=== PATIENT | female | born 1995 | race Caucasian/White ===

== ENCOUNTER 2020-07-09 19:32 | Emergency (ER) | payer SELFPAY ==
[2020-07-09] MEDS ORDERED: Mupirocin Oint 22 GM Tube TOP ONE (19:57)
--- NOTE | 2020-07-09 19:57 | EDM.PDOC ---
ED HPI GENERAL MEDICAL PROBLEM - General Chief Complaint: Skin Complaint Stated Complaint: INFECTED WOUND ON LIP Time Seen by Provider: 07/09/20 19:48 Source of Information: Reports: Patient History Limitations: Reports: No Limitations - History of Present Illness INITIAL COMMENTS - FREE TEXT/NARRATIVE: HISTORY AND PHYSICAL: History of present illness: Patient is a 24-year-old female who presents to the emergency room with complaints of a "infected lip". She states a few days ago she had hit herself in the lip resulting in her splitting her lip open. She states she kept picking at it and ripping the scab off and noticed some purulent drainage coming from the site. She does have a canker/cold sore to the inner aspect of the lip and crusted drainage noted near the ty boarder. The injury does not cross the vermilion border. She states she is currently on amoxicillin for strep throat. She offers no other complaints or concerns. Review of systems: As per history of present illness and below otherwise all systems reviewed and negative. Past medical history: As per history of present illness and as reviewed below otherwise noncontributory. Surgical history: As per history of present illness and as reviewed below otherwise noncontributory. Social history: See social history for further information Family history: As per history of present illness and as reviewed below otherwise noncontributory. Physical exam: General: Well developed and well nourished. Alert and orientated x 3. Nontoxic in appearance and in no acute distress. Vital signs are stable and have been reviewed by me. Nursing notes were reviewed. HEENT: Normocephalic, pupils equal and reactive bilaterally, negative for conjunctival pallor or scleral icterus, mucous membranes moist, 0.75cm laceration to the mid bottom lip, does not cross the vermilion border. She does have a blister to the inside of her bottom lip consistent with a canker sore. TMs normal bilaterally, throat clear, neck supple, nontender, trachea midline. No drooling or trismus noted. No meningeal signs. No hot potato voice noted. Skin: Intact, warm, dry. No lesions or rashes noted. Hematologic: No petechiae or purpra. Mucosa appropriate color and normal nail bed color and refill. Extremities: Atraumatic, moves all extremities per self without difficulty or deficits, negative for cords or calf pain. Neurovascular unremarkable. Neuro: Awake, alert, oriented. Cranial nerves II through XII unremarkable. Cerebellum unremarkable. Motor and sensory unremarkable throughout. Exam nonfocal. Psychiatric: Mood and affect are appropriate. Normal thought process. Answering questions appropriately. Notes: I have spoken with the patient/caregiver and discussed today's findings, in addition to providing specific details for plan of care. Reassessment at the time of disposition demonstrates that the patient is in no acute distress. The patient is stable for discharge, counseling was provided and we discussed in great detail signs and symptoms that would prompt them to return to the Emergency Department. Medication, follow up and supportive care measures were reviewed and discussed. Voices understanding and is agreeable to plan of care. Denies any further questions or concerns at this time. Diagnostics: None Therapeutics: Bactroban Prescription: None Impression: Lip wound, uncomplicated Plan: 1. Keep taking your antibiotic as prescribed. Apply the ointment three times daily x 7 -10 days. 2. Avoid any salty, citrus or spicy foods as this can cause irritation. 3. We encourage you to follow up with your primary care provider and/or recommended specialist in the next few days for re-evaluation and further care/management. If your symptoms should worsen, new symptoms develop or any of the signs and symptoms we discussed should arise please return to the emergency room or call 911 (if needed). Definitive disposition and diagnosis as appropriate pending reevaluation and rev iew of above. Lower lip Pain Score (Numeric/FACES): 8 - Related Data Allergies Allergy/AdvReac Type Severity Reaction Status Date / Time diphenhydramine Allergy Other Verified 07/09/20 19:38 [From Benadryl] Home Meds: Home Meds Amoxicillin 500 mg PO TID 07/09/20 [History] Meclizine [Antivert] 07/09/20 [History] clonazePAM [Klonopin] 0.5 mg PO DAILY PRN 07/09/20 [History] Past Medical History Neurological History: Reports: Migraines Psychiatric History: Reports: Anxiety, Bipolar, PTSD Hematologic History: Reports: Anemia - Infectious Disease History Infectious Disease History: Reports: Chicken Pox Social & Family History - Family History Family Medical History: Noncontributory - Caffeine Use Caffeine Use: Reports: Coffee, Tea - Recreational Drug Use Recreational Drug Use: No ED ROS GENERAL - Review of Systems Review Of Systems: Comprehensive ROS is negative, except as noted in HPI. ED EXAM, SKIN/RASH Exam: See Below (See dictation) Course - Vital Signs Last Recorded V/S: Last Vital Signs Temp 98.0 F 07/09/20 19:40 Pulse 100 07/09/20 19:40 Resp 18 07/09/20 19:40 BP 116/71 07/09/20 19:40 Pulse Ox 99 07/09/20 19:40 - Orders/Labs/Meds Meds: Medications Discontinued Medications Generic Name Dose Route Start Last Admin Trade Name Freq PRN Reason Stop Dose Admin Mupirocin 1 gm 07/09/20 19:57 Bactroban Oint TOP 07/09/20 19:58 ONETIME ONE Departure - Departure Time of Disposition: 19:56 Disposition: Home, Self-Care 01 Clinical Impression: Open wound of lip, uncomplicated Qualifiers: Encounter type: initial encounter Qualified Code(s): S01.501A - Unspecified open wound of lip, initial encounter - Discharge Information Referrals: PCP,None [Primary Care Provider] - Forms: ED Department Discharge Additional Instructions: The following information is given to patients seen in the emergency department who are being discharged to home. This information is to outline your options for follow-up care. We provide all patients seen in our emergency department with a follow-up referral. The need for follow-up, as well as the timing and circumstances, are variable depending upon the specifics of your emergency department visit. If you don't have a primary care physician on staff, we will provide you with a referral. We always advise you to contact your personal physician following an emergency department visit to inform them of the circumstance of the visit and for follow-up with them and/or the need for any referrals to a consulting specialist. The emergency department will also refer you to a specialist when appropriate. This referral assures that you have the opportunity for follow-up care with a specialist. All of these measure are taken in an effort to provide you with optimal care, which includes your follow-up. Under all circumstances we always encourage you to contact your private physician who remains a resource for coordinating your care. When calling for follow-up care, please make the office aware that this follow-up is from your recent emergency room visit. If for any reason you are refused follow-up, please contact the [facility] Emergency Department at and asked to speak to the emergency department charge nurse. [facility] [address] [place] [address] [facility] [address] [place] [address] Thank you for choosing the [facility] emergency department in [place] for your medical needs today. It was a pleasure caring for you. Today you were seen in the emergency department for lip injury. 1. Keep taking your antibiotic as prescribed. Apply the ointment three times daily x 7 -10 days. 2. Avoid any salty, citrus or spicy foods as this can cause irritation. 3. We encourage you to follow up with your primary care provider and/or recommended specialist in the next few days for re-evaluation and further care/management. If your symptoms should worsen, new symptoms develop or any of the signs and symptoms we discussed should arise please return to the emergency room or call 911 (if needed). Sepsis Event Note (ED) - Evaluation Sepsis Screening Result: No Definite Risk - Focused Exam Vital Signs: Vital Signs Temp Pulse Resp BP Pulse Ox 07/09/20 19:40 98.0 F 100 18 116/71 99
== END 2020-07-09 20:17 | disposition home or self-care (01) ==
LOC: MW.ED 19:32
DX: S01.501A Unspecified open wound of lip, initial encounter (principal); Z88.8 Allergy status to other drugs, medicaments and biological substances; X58.XXXA Exposure to other specified factors, initial encounter
CPT/HCPCS: 99283; A9270; 99282

== ENCOUNTER 2020-07-13 03:18 | Emergency (ER) | payer SELFPAY ==
--- NOTE | 2020-07-13 04:41 | EDM.PDOC ---
ED HPI GENERAL MEDICAL PROBLEM - General Chief Complaint: Lower Extremity Injury/Pain Stated Complaint: LT FOOT HURTS Time Seen by Provider: 07/13/20 03:57 - History of Present Illness INITIAL COMMENTS - FREE TEXT/NARRATIVE: HISTORY AND PHYSICAL: History of present illness: This is a 24-year-old female who presents ER today complaining of pain to her left foot. Patient reports that she started having pain to her left big toe x2 days. Patient reports she was unsure how she injured her toe and was not sure whether or not she might have dislocated. Patient reports that this evening while she was in bed she pulled off her sock and shortly after pulling off her sock to go to bed she started experiencing pain to her ankle as well. Patient denies any recent fevers, shakes, chills, nausea, vomiting, diarrhea, dysuria, frequency, urgency. Patient denies any history of gout. Patient denies any STD history. Patient reports that she took a Vicodin at home as well as 400 mg of ibuprofen without any significant improvement in her discomfort. Patient reports that she is able to ambulate with a significant amount of pain and discomfort. Patient reports that she works at [employer] as well as for [employer] and does a lot of heavy lifting and walking up and down stairs. Patient denies any known injury aside from potential overuse. Patient denies any history of hypertension, diabetes, liver, lung, kidney problems. Patient denies any recent alcohol or drugs. Patient is allergic to Benadryl. Review of systems: As per history of present illness and below otherwise all systems reviewed and negative. Past medical history: As per history of present illness and as reviewed below otherwise noncontributory. Surgical history: As per history of present illness and as reviewed below otherwise noncontributory. Social history: No reported history of drug or alcohol abuse. Family history: As per history of present illness and as reviewed below otherwise noncontributory. Physical exam: Constitutional: Patient is oriented to person, place, and time. Appears well- developed and well-nourished. No distress. HEENT: Moist mucous membranes Head: Normocephalic and atraumatic Eyes: Right eye exhibits no discharge. Left eye exhibits no discharge. No scleral icterus Neck: Normal range of motion. No tracheal deviation present. Cardiovascular: Normal rate and regular rhythm. Pulmonary: Effort normal, no respiratory distress. Abdominal: No distention Musculoskeletal: Normal range of motion Neurologic: Alert and oriented to person, place and time. Skin: [place], warm and dry. Psychiatric: Normal mood and affect. Behavior is normal. Judgment and thought content normal. Nursing note and vital signs have been reviewed Patient's ER physical exam is significant for tenderness to palpation to her left ankle and toe. Patient has no point tenderness in her medial or lateral malleolus. Patient has some tenderness palpation near deltoid ligament as well as her medial aspect of her ankle. Patient also has tenderness to palpation to her big toe with range of motion. Patient has no soft tissue swelling or edema. Patient has no warmth. Patient has no erythema to her ankle or foot. Diagnostics: X-ray left foot reveals no acute fracture or dislocation as interpreted by [facility] X-ray left ankle reveals no acute fracture dislocation as interpreted by [facility] [employer]: Obed wrap Assessment and plan: 24-year-old female who presents to the ER today secondary to pain to her left ankle and foot. Patient has no obvious injury or history of trauma. Patient's x-rays are negative. Etiology of her pain is unclear. Pain may be secondary to overuse at work. Patient be placed in an Obed wrap and instructed to rest, elevate, ice. DME note: Obed wrap ordered secondary to pain to her left foot and ankle which is likely secondary to overuse injury. Ankle splint will assist patient with giving support and immobilizing joint to assist with healing. Patient will need to have Obed wrap for 5 days. Definitive disposition and diagnosis as appropriate pending reevaluation and review of above. Left Feet Pain Score (Numeric/FACES): 7 - Related Data Allergies Allergy/AdvReac Type Severity Reaction Status Date / Time diphenhydramine Allergy Other Verified 07/13/20 03:35 [From Benadryl] Home Meds: Home Meds Amoxicillin 500 mg PO TID 07/09/20 [History] Meclizine [Antivert] 07/09/20 [History] clonazePAM [Klonopin] 0.5 mg PO DAILY PRN 07/09/20 [History] Past Medical History Neurological History: Reports: Migraines Psychiatric History: Reports: Anxiety, Bipolar, PTSD Hematologic History: Reports: Anemia - Infectious Disease History Infectious Disease History: Reports: Chicken Pox Social & Family History - Family History Family Medical History: Noncontributory - Tobacco Use Tobacco Use Status *Q: Never Tobacco User Second Hand Smoke Exposure: No - Caffeine Use Caffeine Use: Reports: Coffee, Tea - Recreational Drug Use Recreational Drug Use: No Review of Systems - Review of Systems Review Of Systems: See Below ED EXAM, GENERAL - Physical Exam Exam: See Below Course - Vital Signs Last Recorded V/S: Last Vital Signs Temp 97.3 F 07/13/20 03:35 Pulse 94 07/13/20 03:35 Resp 16 07/13/20 03:35 BP 119/68 07/13/20 03:35 Pulse Ox 96 07/13/20 03:35 - Orders/Labs/Meds Orders: Active Orders 24 hr Category Date Time Status DME for Discharge [COMM] Stat Oth 07/13/20 04:51 Ordered Departure - Departure Time of Disposition: 04:41 Disposition: Home, Self-Care 01 Condition: Good Clinical Impression: Foot pain - Discharge Information Instructions: Elastic Bandage and RICE Therapy, Ankle Pain, Foot Pain Referrals: PCP,None [Primary Care Provider] - Forms: ED Department Discharge Additional Instructions: You were seen and evaluated in the ER today secondary to the pain in your. Your x-ray did not reveal any fracture. Your pain may be secondary to overuse. You have been given an Obed wrap here in the ED to help with immobilization and to protect the area. Please keep your foot elevated, ice it up for the next 48 hours and that you may apply heat thereafter. You can use ibuprofen 3 pills every 6 hours as needed for pain. He can also add acetaminophen 1 g every 6 hours as needed for pain. If your pain continues for more than 2 to 3 days, please call the orthopedic clinic number provided for you for an appointment for reevaluation. [facility] - [facility] [address], [address] [place] [address] The following information is given to patients seen in the emergency department who are being discharged to home. This information is to outline your options for follow-up care. We provide all patients seen in our emergency department with a follow-up referral. The need for follow-up, as well as the timing and circumstances, are variable depending upon the specifics of your emergency department visit. If you don't have a primary care physician on staff, we will provide you with a referral. We always advise you to contact your personal physician following an emergency department visit to inform them of the circumstance of the visit and for follow-up with them and/or the need for any referrals to a consulting specialist. The emergency department will also refer you to a specialist when appropriate. This referral assures that you have the opportunity for follow-up care with a specialist. All of these measure are taken in an effort to provide you with optimal care, which includes your follow-up. Under all circumstances we always encourage you to contact your private physician who remains a resource for coordinating your care. When calling for follow-up care, please make the office aware that this follow-up is from your recent emergency room visit. If for any reason you are refused follow-up, please contact the [facility] Emergency Department at and asked to speak to the emergency department charge nurse. [facility] - Primary Care [address] [place] [address] [facility] [address] [place] [id number] Sepsis Event Note (ED) - Evaluation Sepsis Screening Result: No Definite Risk - Focused Exam Vital Signs: Vital Signs Temp Pulse Resp BP Pulse Ox 07/13/20 03:35 97.3 F 94 16 119/68 96 - My Orders Last 24 Hours: My Active Orders 07/13/20 04:51 DME for Discharge [COMM] Stat - Assessment/Plan Last 24 Hours: My Active Orders 07/13/20 04:51 DME for Discharge [COMM] Stat
--- NOTE | 2020-07-13 04:46 | CR ---
Indication: Pain Technique: Three views Comparison: None Findings: Bones: Alignment is normal. No fractures or bone lesions. Joint spaces: Unremarkable. Soft tissues: Lateral soft tissue swelling. Dictated by Karri Ferrari MD @ Jul 13 2020 4:43AM Signed by Dr. Karri Ferrari @ Jul 13 2020 4:44AM
--- NOTE | 2020-07-13 04:48 | CR ---
Indication: Pain Technique: Three views Comparison: None Findings: Bones: Alignment is normal. No fractures or bone lesions. Joint spaces: Unremarkable. Soft tissues: Lateral soft tissue swelling. Dictated by Karri Ferrari MD @ Jul 13 2020 4:44AM Signed by Dr. Karri Ferrari @ Jul 13 2020 4:47AM
== END 2020-07-13 05:15 | disposition home or self-care (01) ==
LOC: MW.ED 03:18
DX: M79.672 Pain in left foot (principal); F31.9 Bipolar disorder, unspecified; F41.9 Anxiety disorder, unspecified; G43.909 Migraine, unspecified, not intractable, without status migrainosus; Z88.8 Allergy status to other drugs, medicaments and biological substances; Z79.899 Other long term (current) drug therapy
CPT/HCPCS: 73610-26-LT; 73610-LT; 73630-26-LT; 73630-LT; 99283-25